=== PATIENT | female | born 1945 | race Caucasian/White ===

== ENCOUNTER 2017-11-29 13:39 | Emergency (ER) | payer MEDICARE, MEDICAID ==
--- NOTE | 2017-11-29 14:12 | ED ---
Head Injury - HPI Summary HPI Summary: This pt is a 72 y/o female presenting to [facility] c/o headache s/p bookshelf fell on her head 2 days ago. Pt states the bookshelf "toppled over" the top area of her head 2 days ago. She denies LOC. Pt presents today for headache and feeling "groggy." Denies visual changes, nausea, vomiting. Pt is not on anticoagulants. - History Of Current Complaint Chief Complaint: EDHeadInjury Stated Complaint: HEAD INJURY Time Seen by Provider: 11/29/17 14:07 Hx Obtained From: Patient Mechanism Of Injury: Blunt Trauma Onset/Duration: Started Days Ago - 2, Traumatic, Still Present Onset of Pain: Days - 2 Severity Initially: Moderate Pain Intensity: 5 Pain Scale Used: 0-10 Numeric Location of Head Injury: Diffuse Location: Diffuse Aggravating Factor(s): Other: - nothing Alleviating Factor(s): Other: - nothing Associated Signs And Symptoms: Headache, Other: - POS: groggy. NEG: LOC, visual changes, nausea, vomiting - Allergies/Home Medications Allergies/Adverse Reactions: Allergies Allergy/AdvReac Type Severity Reaction Status Date / Time MS Erythromycin Allergy Severe Unknown Verified 11/29/17 13:47 [Erythromycin] Reaction Details MS Penicillins [Penicillins] Allergy Severe Unknown Verified 11/29/17 13:47 Reaction Details MS Sulfa Drugs [Sulfa Drugs] Allergy Intermediate Unknown Verified 11/29/17 13: 47 Reaction Details MS Cephalexin [Cephalexin] Allergy red raw Verified 11/29/17 13:47 rash on face MS Wheat Bran [Wheat Bran] Allergy Itching Verified 11/29/17 13:47 multiple chemicals, inc Allergy Hives/Diff. Uncoded 11/29/17 13:47 plastics Breathing/I tching Home Medications: Home Medications NK [No Home Medications Reported] 11/29/17 [History Confirmed 11/29/17] PMH/Surg Hx/FS Hx/Imm Hx Endocrine/Hematology History: Reports: Hx Diabetes - diet controlled, Other Endocrine/Hematological Disorders - multiple chemical sensitivity Denies: Hx Thyroid Disease Cardiovascular History: Denies: Hx Hypertension, Hx Pacemaker/ICD Respiratory History: Reports: Hx Sleep Apnea - hx TANIYA, not treating Denies: Hx Asthma, Hx Chronic Obstructive Pulmonary Disease (COPD) GI History: Reports: Hx Gall Bladder Disease, Other GI Disorders - recurrent hernia Denies: Hx Ulcer Musculoskeletal History: Reports: Other Musculoskeletal History - knee problems , morbid obesity Psychiatric History: Denies: Hx Panic Disorder - Cancer History Cancer Type, 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 RECTAL FISTULA REPAIR. C SECTION. TONESILECTOMY. HERNIA REPAIRS- Xs 2 - Immunization History Date of Tetanus Vaccine: UNKNOWN Infectious Disease History: No Infectious Disease History: Denies: Hx Clostridium Difficile, Hx Hepatitis, Hx Human Immunodeficiency Virus (HIV), Hx of Known/Suspected MRSA, Traveled Outside the [place] in Last 30 Days - Family History Known Family History: Positive: Cardiac Disease - Father with [place] Family History: Mother: of ovarian CA - Social History Alcohol Use: None Substance Use Type: Reports: None Smoking Status (MU): Never Smoked Tobacco Review of Systems Negative: Fever, Chills Eyes: Negative ENT: Negative Negative: Vomiting, Nausea Neurological: Other - POS: groggy. NEG: visual changes Positive: Headache All Other Systems Reviewed And Are Negative: Yes Physical Exam - Summary Physical Exam Summary: Appearance: The patient is well-nourished in no acute distress and in no acute pain. Skin: The skin is warm and dry and skin color reflects adequate perfusion. HEENT: The head is normocephalic. The pupils are equal and reactive. The conjunctivae are clear and without drainage. Nares are patent and without drainage. Mouth reveals moist mucous membranes and the throat is without erythema and exudate. The external ears are intact. The ear canals are patent and without drainage. The tympanic membranes are intact. Neck: the neck is supple with full range of motion and non-tender. There are no carotid bruits. There is no neck vein distension. Respiratory: Chest is non-tender. Lungs are clear to auscultation and breath sounds are symmetrical and equal. Cardiovascular: Heart is regular rate and rhythm. There is no murmur or rub auscultated. There is no peripheral edema and pulses are symmetrical and equal. Abdomen: The abdomen is soft and non-tender. There are normal bowel sounds heard in all four quadrants and there is no organomegaly palpated. Musculoskeletal: There is no back tenderness noted. Extremities are non-tender with full range of motion. There is good capillary refill. There is no peripheral edema or calf tenderness elicited. Neurological: Patient is alert and oriented to person, place and time. The patient has symmetrical motor strength in all four extremities. Cranial nerves are grossly intact. Psychiatric: The patient has an appropriate affect and does not exhibit any anxiety or depression. Triage Information Reviewed: Yes Vital Signs On Initial Exam: Initial Vitals Temp Pulse Resp BP Pulse Ox 98.1 F 56 18 93/57 98 11/29/17 13:40 11/29/17 13:40 11/29/17 13:40 11/29/17 13:40 11/29/17 13:40 Vital Signs Reviewed: Yes - Omar Coma Scale Best Eye Response: 4 - Spontaneous Best Motor Response: 6 - Obeys Commands Best Verbal Response: 5 - Oriented Coma Scale Total: 15 Diagnostics - Vital Signs Vital Signs Temp Pulse Resp BP Pulse Ox 11/29/17 13:40 98.1 F 56 18 93/57 98 - Laboratory Lab Statement: Any lab studies that have been ordered have been reviewed, and results considered in the medical decision making process. - CT Brain CT CT Interpretation: No Acute Changes - IMPRESSION: No acute intracranial findings. Dr. Smith has reviewed this radiology report. CT Interpretation Completed By: Radiologist Re-Evaluation - Re-Evaluation First Eval Re-Evaluation Time: 15:58 Comment: Reviewed CT results with the pt. Head Injury Course/Dx Course Of Treatment: Ms. Apple presented with a headache ever since a shelf fell on her head 2 days ago. Her neurological exam was intact and CT scan showed no acute pathology. We discussed concussion and she was discharged in stable condition - Diagnoses Provider Diagnoses: Head injury Discharge - Sign-Out/Discharge Documenting (check all that apply): Patient Departure - Discharge - Discharge Plan Condition: Stable Disposition: HOME Patient Education Materials: Head Injury (ED) Referrals: Jareth Amor MD [Primary Care Provider] - Additional Instructions: Recommend Ibuprofen for the pain. Please follow up with your primary care provider in 2-3 days. RETURN TO THE ED FOR ANY WORSENING SYMPTOMS. - Billing Disposition and Condition Condition: STABLE Disposition: Home
--- NOTE | 2017-11-29 15:00 | RAD ---
INDICATION: Intracranial injury COMPARISON: CT brain December 12, 2015 TECHNIQUE: Noncontrast axial source images were acquired from the skull base to the vertex. FINDINGS: Ventricles/sulci: The ventricles and cisterns are normal in size and configuration for age. Brain parenchyma: There is no acute focal parenchymal finding, evidence of intracranial mass, or intracranial mass effect. There is mild chronic microvascular ischemic change Intracranial hemorrhage:None. Extra-axial spaces: There are no abnormal extra axial fluid collections or evidence of extra-axial mass. Calvarium: There is no calvarial fracture or other calvarial abnormality. Scalp: There is no evidence of scalp or extracalvarial soft tissue abnormality. Paranasal sinuses/mastoid: The paranasal sinuses and mastoid air cells are clear. Other: None. IMPRESSION: NO ACUTE INTRACRANIAL FINDINGS
[2017-11-29 16:09] VITALS: BP 151/78
== END 2017-11-29 16:08 | disposition home or self-care (01) ==
LOC: ED 13:39
DX: S09.90XA Unspecified injury of head, initial encounter (principal); R51 Headache; Z88.0 Allergy status to penicillin; W22.8XXA Striking against or struck by other objects, initial encounter; Y92.9 Unspecified place or not applicable
CPT/HCPCS: 70450; 99281